=== PATIENT | female | born 1935 | race Caucasian/White ===

== ENCOUNTER 2017-11-13 18:20 | Inpatient (IN) | payer MEDICARE, OTHER ==
[~2017-11-13] VITALS: Ht 152.4 cm; Wt 65.9 kg
[~2017-11-13 18:20] MED LIST: COUMADIN 3 MG TA3 M1 PO; KEPPRA 500 MG500 M1 PO; LISINOPRIL10 MG PO; LOPRESSOR50 PO; VITAMIN D1000 UNI1 PO
[2017-11-13 18:23] VITALS: BP 100/73
[2017-11-13 18:44] LABS: URINE BILIRUBIN NEGATIVE (Negative); URINE BLOOD 1+ (Negative); URINE CLARITY CLEAR; URINE COLOR YELLOW; URINE GLUCOSE-RANDOM NEGATIVE (Negative); URINE KETONES NEGATIVE (Negative); URINE LEUKOCYTES-REFLEX 1+ (Negative); URINE NITRITE-REFLEX NEGATIVE (Negative); URINE PROTEIN NEGATIVE (Negative); URINE SPECIFIC GRAVITY 1.015 (1.005-1.030); URINE UROBILINOGEN 0.2 E.U./dl (0.2-1.0)
[2017-11-13 18:55] LABS: CASTS None Seen /LPF (None Seen); CRYSTALS None Seen /LPF (None Seen); MUCUS None Seen strn/LPF (None Seen); SQUAMOUS >10 Many /LPF (0-3)
[2017-11-13 18:56] LABS: BACTERIA-REFLEX 1-9 Few /HPF (None Seen); URINE RBC 0-2 Rare /HPF (0-2); URINE WBC-REFLEX 6-15 Few /HPF (0-5)
[2017-11-13 19:13] LABS: HEMATOCRIT 45.2 % (37.0-47.0); HEMOGLOBIN 15.3 gm/dL (12.0-15.0); MCH 31.4 pg (26.0-34.0); MCHC 33.9 g/dL (28.0-37.0); MCV 92.6 fL (80.0-100.0); MPV 7.2 fl. (7.2-11.1); NUCLEATED RBCS 0 /100WBC; PLATELET COUNT* 256 thou/uL (150-400); RBC 4.89 mil/uL (4.20-5.00); RDW-CV 12.5 % (10.5-14.5); WBC 11.3 thou/uL (4.0-11.0)
[2017-11-13 19:27] LABS: INFLUENZA A ANTIGEN None Detected (None Detect); INFLUENZA B ANTIGEN None Detected (None Detect)
[2017-11-13 19:33] LABS: CALCIUM 8.8 mg/dL (8.5-10.1); CREATININE 0.9 mg/dL (0.6-1.3); POTASSIUM 3.9 mmol/L (3.5-5.1)
[2017-11-13 19:40] LABS: ALBUMIN 3.6 g/dL (3.4-5.0); TOTAL BILIRUBIN 1.7 mg/dL (<0.1-1.0); TOTAL PROTEIN 6.8 g/dL (6.4-8.2)
[2017-11-13 19:47] LABS: ABSOLUTE LYMPHOCYTES 0.8 thou/uL (0.8-5.3); ABSOLUTE MONOCYTES 0.2 thou/uL (0.0-1.2); ABSOLUTE NEUTROPHILS 10.3 thou/uL (1.6-8.1)
[2017-11-13 19:48] LABS: PLATELET ESTIMATE ADEQUATE
[2017-11-13 20:32] LABS: INR 3.4; PROTIME 32.5 Seconds (9.20-11.50)
[2017-11-13 21:42] VITALS: BP 107/62
[2017-11-13 22:10] VITALS: BP 126/56
[2017-11-13 22:46] VITALS: BP 126/56
[2017-11-13 23:55] VITALS: BP 105/59
[2017-11-14 04:00] VITALS: BP 115/68
--- NOTE | 2017-11-14 05:08 | NUR ---
PATIENT HAS REMAINED STABLE SINCE ADMISSION. PATIENT HAS RESTED WELL THIS SHIFT WITH NO C/O PAIN OR DISCOMFORT. CLINICAL UNIT EDUCATOR IN PLACE TRACING AFIB, CHRONIC, CONTROLLED. ASSESSMENT AND VITALS COMPLETED CHARTED, VSS. IVF INFUSING PER ORDERS. HOURLY ROUNDING OBSERVED. CALL LIGHT WITHIN REACH
[2017-11-14 08:03] LABS: INR 4.4; PROTIME 41.4 Seconds (9.20-11.50)
[2017-11-14 08:12] VITALS: BP 134/73
--- NOTE | 2017-11-14 10:00 | NUR ---
PT A & O X3, ABLE TO COMMUNICATE NEEDS TO STAFF, HOWEVER, FORGETFUL AND REQUIRES REORIENTATION. AT BS VISITING, PT FREQUENTLY LOOKS TO HIM FOR ANSWERS. VS WNL. A-FIB WITH PVCS ON TELE MONITOR. 02 SATS >92% ON 2L NC. IV ROCEPHIN INFUSING. NEEDED ITEMS AND CALL LIGHT WITHIN REACH. HOURLY ROUNDING COMPLETE.
--- NOTE | 2017-11-14 11:00 | NUR ---
MET WITH PT AND SPOUSE TO DISCUSS HOME SITUATION/DC PLANNING. PT KNOWN TO CM FROM PRE[facility]OUS [facility] STAY ON [facility]PT [facility]HAB UNIT. PT LIVES WITH SPOUSE. HE ASSISTS HER NEEDED WITH ADLS. PT IS ABLE TO DO SOME COOKING. THEY SHARE OTHER HOUSEHOLD DUTIES. SPOUSE DOES DRIVING. PT HAS CANE SHE USES AND SHOWER SEAT IN A WALK IN SHOWER. PT HAS A WALKER BUT DOESN'T USE IT. SHE HAS HAD HH WITH [facility] BUT DOESN'T THINK SHE NEEDS IT THIS TIME. SHE PLANS TO RETURN HOME WITH SPOUSE AND WANTS TO GO HOME SOON. WILL FOLLOW
[2017-11-14 12:07] VITALS: BP 107/62
--- NOTE | 2017-11-14 14:48 | EKG ---
[place] [address] ELECTROCARDIOGRAM REPORT Name: SANDRA KHANNA Room: [address] ADM IN .R.#: [id number] Admission: 11/13/17 Attend Phys: Alfa Machuca MD Discharge: Date of : 33 Report #: [id number] THIS REPORT FOR: //name// [facility] ED Test Date: 2017-11-13 Test Time: 18:43:14 Pat Name: SANDRA KHANNA Department: Room: [facility] Gender: F Roll Handler: 11 : 1935 Requested By: Dulce Maria Finn Order Number: [id number] MD: Pierce Pandey Measurements Intervals [place] Rate: 93 P: [place]: QRS: 25 QRSD: 93 T: 2 QT: 360 QTc: 448 Interpretive Statements Atrial fibrillation Abnormal R-wave progression, late transition Borderline T abnormalities, inferior leads No previous ECG available for comparison Electronically Signed On 11-14-2017 14:48:08 CDT by Pierce Pandey [email or web address] <ELECTRONICALLY SIGNED> By: Pierce Pandey MD, [facility] 11/14/17 1448 [id number] [id number] Pierce Pandey MD, FAC /EPI
[2017-11-14 16:02] VITALS: BP 105/58
[2017-11-14 20:00] VITALS: BP 137/65
--- NOTE | 2017-11-14 22:00 | NUR ---
RECIEVED REPORT AND ASSUMED CARE OF PATIENT AT 1930. ASSESSMENT AND VITALS COMPLETED CHARTED, VSS. MARKETING PRODUCER TRACING AFIB, CHRONIC AND CONTROLLED. PATIENT ALERT AND ORIENTED TO PERSON AND PLACE, FORGETFUL AND CONFUSED. UPON ASSESSMENT, PATIENT HAD MARKETING PRODUCER OFF AND IV DISCONNECTED. PATIENT FRUSTRATED THAT BED AND CHAIR ALARMS WERE IN PLACE. PATIENT EDUCATED ON FALL PRECAUTIONS AND SAFETY AND ENCOURAGED THAT THESE WERE IN PLACE FOR SAFETY REASONS. PATIENT VERBALIZES UNDERSTANDING. GOAL IS TO MAINTAIN SAFETY AND REORIENTATION NEEDED WITHOUT INTERUPTION IN TREATMENT. CALL LIGHT WITHIN REACH.
[2017-11-15] VITALS: BP 126/77
[2017-11-15 03:35] VITALS: BP 127/66
--- NOTE | 2017-11-15 05:12 | NUR ---
PATIENT REMAINS CONFUSED AND IMPULSIVE THROUGHOUT SHIFT REQUIRING REORIENTATION FREQUENTLY. PATIENT FRUSTRATED AND HAS BEEN FOUND MESSING WITH IV AND THE TUBING. PATIENT REMINDED OF TREATMENT AND PLAN OF CARE. PATIENT VERBALIZES UNDERSTANDING. THIS RN WENT IN PATIENT'S ROOM THIS AM TO RESUME IVF BECAUSE PATIENT HAD TANGLED TUBING IN HER SLEEP. AT THAT TIME, PATIENT WAS TOLD THAT HER MORNING PROTONIX WOULD BE BROUGHT IN SOON. PATIENT HUFFED AND SAID "NO, LET ME SLEEP." MEDICATION MARKED REFUSED. PATIENT ANTICIPATING DISCHARGE HOME TODAY. HOURLY ROUNDING OBSERVED. CALL LIGHT WITHIN REACH
[2017-11-15 05:30] LABS: HEMATOCRIT 37.9 % (37.0-47.0); MCH 31.3 pg (26.0-34.0); MCHC 34.1 g/dL (28.0-37.0); MCV 91.9 fL (80.0-100.0); MPV 7.3 fl. (7.2-11.1); RBC 4.12 mil/uL (4.20-5.00); RDW-CV 12.6 % (10.5-14.5); WBC 8.9 thou/uL (4.0-11.0)
[2017-11-15 05:37] LABS: INR 3.8; PROTIME 36.6 Seconds (9.20-11.50)
[2017-11-15 05:45] LABS: HEMOGLOBIN 12.9 gm/dL (12.0-15.0)
[2017-11-15 05:52] LABS: ALBUMIN 2.7 g/dL (3.4-5.0); CALCIUM 8.5 mg/dL (8.5-10.1); CREATININE 0.9 mg/dL (0.6-1.3); MAGNESIUM 2.1 mg/dL (1.8-2.4); POTASSIUM 4.8 mmol/L (3.5-5.1); TOTAL BILIRUBIN 0.7 mg/dL (<0.1-1.0); TOTAL PROTEIN 5.5 g/dL (6.4-8.2)
[2017-11-15 08:00] VITALS: BP 130/59
--- NOTE | 2017-11-15 09:57 | NUR ---
ASSUMED CARE OF PATIENT THIS AM AT 0730. PATIENT IS ALERT AND ORIENTED X 3 THIS AM. SHE DENIES PAIN. SHE HAS BEEN ASSISTED UP TO THE CHAIR THIS AM. PATIENT IS TAKING HER MEALS WELL. NO C/O PAIN.NAUSEA OR DISCOMFORT. TELE SHOWS A FIB. PATIENT IS USING HER CALL LIGHT APPROPRIATELY. NO FALLS OR INJURY. PATIENT CONTINUES TO REFUSE FLU VACCINE UNTIL SHE TALKS TO HER . IV FLUIDS INFUSING WITOUT DIFFICULTY. WILL CONTINUE TO MONITOR. CHAIR ALARM AND BED ALARM IS ON.
[2017-11-15] MEDS ORDERED: BACTRIM DS TAB1 EACH PO (13:51)
== END 2017-11-15 16:20 | disposition home or self-care (01) | DRG 689 ==
LOC: M.ERS 18:20 → M.TBA-ER 20:22 → M.2W 20:22
PROVIDERS: Internal Medicine; Nurse Practitioner Family; ADMIT Internal Medicine
DX: N30.01 Acute cystitis with hematuria (principal); G92 Toxic encephalopathy; R65.10 Systemic inflammatory response syndrome (SIRS) of non-infectious origin without acute organ dysfunction; I69.351 Hemiplegia and hemiparesis following cerebral infarction affecting right dominant side; J96.10 Chronic respiratory failure, unspecified whether with hypoxia or hypercapnia; E44.1 Mild protein-calorie malnutrition; F03.90 Unspecified dementia, unspecified severity, without behavioral disturbance, psychotic disturbance, mood disturbance, and anxiety; R56.9 Unspecified convulsions; I48.91 Unspecified atrial fibrillation; Z90.49 Acquired absence of other specified parts of digestive tract; Z90.710 Acquired absence of both cervix and uterus; Z95.0 Presence of cardiac pacemaker; Z79.01 Long term (current) use of anticoagulants; Z83.3 Family history of diabetes mellitus; Z80.9 Family history of malignant neoplasm, unspecified; Z83.6 Family history of other diseases of the respiratory system; Z79.899 Other long term (current) drug therapy; Z28.82 Immunization not carried out because of caregiver refusal; Z98.49 Cataract extraction status, unspecified eye

== ENCOUNTER 2018-04-24 09:33 | Emergency (ER) | payer MEDICARE, OTHER ==
[~2018-04-24] VITALS: Ht 160 cm; Wt 65.8 kg
[~2018-04-24 09:33] MED LIST changes: +BACTRIM DS TAB1 EACH PO
[2018-04-24 10:16] LABS: ABSOLUTE EOSINOPHILS 0.1 thou/uL (0.0-0.7); ABSOLUTE LYMPHOCYTES 1.5 thou/uL (0.8-5.3); ABSOLUTE MONOCYTES 0.4 thou/uL (0.0-1.2); ABSOLUTE NEUTROPHILS 1.8 thou/uL (1.6-8.1); BASOPHILS 1.1 %; EOSINOPHILS 1.9 %; HEMATOCRIT 44.7 % (37.0-47.0); LYMPHOCYTES 39.7 %; MCHC 33.6 g/dL (28.0-37.0); MCV 92.2 fL (80.0-100.0); MONOCYTES 11.5 %; MPV 6.9 fl. (7.2-11.1); NUCLEATED RBCS 0 /100WBC; PLATELET COUNT* 179 thou/uL (150-400); POLYS 45.8 %; RBC 4.85 mil/uL (4.20-5.00); RDW-CV 13.1 % (10.5-14.5); WBC 3.9 thou/uL (4.0-11.0)
[2018-04-24 10:24] LABS: CALCIUM 8.6 mg/dL (8.5-10.1); CREATININE 0.8 mg/dL (0.6-1.3); POTASSIUM 3.9 mmol/L (3.5-5.1)
[2018-04-24 10:28] LABS: ALBUMIN 3.4 g/dL (3.4-5.0); TOTAL BILIRUBIN 2.1 mg/dL (<0.1-1.0); TOTAL PROTEIN 6.8 g/dL (6.4-8.2)
[2018-04-24 10:37] LABS: URINE BILIRUBIN NEGATIVE (Negative); URINE BLOOD TRACE (Negative); URINE CLARITY CLEAR; URINE COLOR YELLOW; URINE GLUCOSE-RANDOM NEGATIVE (Negative); URINE KETONES NEGATIVE (Negative); URINE LEUKOCYTES-REFLEX TRACE (Negative); URINE NITRITE-REFLEX NEGATIVE (Negative); URINE PROTEIN NEGATIVE (Negative); URINE SPECIFIC GRAVITY <= 1.005 (1.005-1.030); URINE UROBILINOGEN 0.2 E.U./dl (0.2-1.0)
[2018-04-24 10:46] LABS: BACTERIA-REFLEX 1-9 Few /HPF (None Seen); CASTS None Seen /LPF (None Seen); CRYSTALS None Seen /LPF (None Seen); MUCUS None Seen strn/LPF (None Seen); SQUAMOUS 0-3 Few /LPF (0-3); URINE RBC 0-2 Rare /HPF (0-2); URINE WBC-REFLEX 0-5 Rare /HPF (0-5)
[2018-04-24] MEDS ORDERED: KEFLEX500 M1 PO (11:13)
[2018-04-24 12:36] VITALS: BP 143/74
== END 2018-04-24 12:36 | disposition home or self-care (01) ==
LOC: M.ERS 09:33
PROVIDERS: Personal Emergency Response Attendant
DX: N39.0 Urinary tract infection, site not specified (principal); I48.91 Unspecified atrial fibrillation; Z86.73 Personal history of transient ischemic attack (TIA), and cerebral infarction without residual deficits

== ENCOUNTER 2018-04-30 04:56 | Emergency (ER) | payer MEDICARE, OTHER ==
[~2018-04-30] VITALS: Ht 152.4 cm; Wt 61.2 kg
[~2018-04-30 04:56] MED LIST changes: +KEFLEX500 M1 PO
[2018-04-30 05:23] LABS: INR 2.2; PROTIME 22.3 Seconds (9.20-11.50)
[2018-04-30 05:56] LABS: URINE BILIRUBIN NEGATIVE (Negative); URINE BLOOD 2+ (Negative); URINE CLARITY CLEAR; URINE COLOR YELLOW; URINE GLUCOSE-RANDOM NEGATIVE (Negative); URINE KETONES NEGATIVE (Negative); URINE LEUKOCYTES-REFLEX TRACE (Negative); URINE NITRITE-REFLEX NEGATIVE (Negative); URINE PROTEIN NEGATIVE (Negative); URINE SPECIFIC GRAVITY 1.015 (1.005-1.030); URINE UROBILINOGEN 0.2 E.U./dl (0.2-1.0)
[2018-04-30 06:03] LABS: BACTERIA-REFLEX >30 Many /HPF (None Seen); CASTS None Seen /LPF (None Seen); CRYSTALS None Seen /LPF (None Seen); MUCUS 4-6 Moderate strn/LPF (None Seen); SQUAMOUS 0-3 Few /LPF (0-3); TRANSITIONAL EPITHEL CELL 0-3 Few /LPF (None Seen); URINE RBC >20 Many /HPF (0-2); URINE WBC-REFLEX 6-15 Few /HPF (0-5); WBC CLUMPS Few (None Seen)
[2018-04-30 06:32] VITALS: BP 145/97
== END 2018-04-30 06:34 | disposition home or self-care (01) ==
LOC: M.ERS 04:56
PROVIDERS: Emergency Medicine
DX: S00.83XA Contusion of other part of head, initial encounter (principal); I48.91 Unspecified atrial fibrillation; Z87.440 Personal history of urinary (tract) infections; W01.0XXA Fall on same level from slipping, tripping and stumbling without subsequent striking against object, initial encounter; Y93.89 Activity, other specified; Y92.89 Other specified places as the place of occurrence of the external cause; Y99.8 Other external cause status

== ENCOUNTER 2018-08-27 10:54 | Inpatient (IN) | payer MEDICARE, OTHER ==
[~2018-08-27] VITALS: Ht 162.6 cm; Wt 70.8 kg
[2018-08-27 10:58] VITALS: BP 185/90
[2018-08-27 11:15] LABS: URINE BILIRUBIN NEGATIVE (Negative); URINE BLOOD TRACE (Negative); URINE CLARITY CLEAR; URINE COLOR YELLOW; URINE GLUCOSE-RANDOM NEGATIVE (Negative); URINE KETONES NEGATIVE (Negative); URINE LEUKOCYTES-REFLEX TRACE (Negative); URINE NITRITE-REFLEX NEGATIVE (Negative); URINE PROTEIN NEGATIVE (Negative); URINE SPECIFIC GRAVITY 1.015 (1.005-1.030); URINE UROBILINOGEN 0.2 E.U./dl (0.2-1.0)
[2018-08-27 11:23] LABS: ABSOLUTE BASOPHILS 0.1 thou/uL (0.0-0.2); ABSOLUTE EOSINOPHILS 0.1 thou/uL (0.0-0.7); ABSOLUTE LYMPHOCYTES 1.6 thou/uL (0.8-5.3); ABSOLUTE MONOCYTES 0.5 thou/uL (0.0-1.2); ABSOLUTE NEUTROPHILS 2.6 thou/uL (1.6-8.1); BASOPHILS 1.4 %; EOSINOPHILS 2.8 %; HEMATOCRIT 48.8 % (37.0-47.0); HEMOGLOBIN 16.4 gm/dL (12.0-15.0); LYMPHOCYTES 33.3 %; MCH 31.6 pg (26.0-34.0); MCHC 33.7 g/dL (28.0-37.0); MCV 93.6 fL (80.0-100.0); MONOCYTES 10.2 %; MPV 6.9 fl. (7.2-11.1); NUCLEATED RBCS 0 /100WBC; PLATELET COUNT* 204 thou/uL (150-400); POLYS 52.3 %; RBC 5.21 mil/uL (4.20-5.00); RDW-CV 12.9 % (10.5-14.5); WBC 4.9 thou/uL (4.0-11.0)
[2018-08-27 11:27] LABS: SQUAMOUS 0-3 Few /LPF (0-3)
[2018-08-27 11:28] LABS: BACTERIA-REFLEX 1-9 Few /HPF (None Seen); CASTS None Seen /LPF (None Seen); CRYSTALS None Seen /LPF (None Seen); MUCUS 0-3 Light strn/LPF (None Seen); URINE RBC 0-2 Rare /HPF (0-2); URINE WBC-REFLEX 0-5 Rare /HPF (0-5)
[2018-08-27 11:31] LABS: ANION GAP 7 mmol/L (7-16); BUN 13 mg/dL (7-18); CALCIUM 9.1 mg/dL (8.5-10.1); CHLORIDE 99 mmol/L (98-107); CO2 32 mmol/L (21-32); GLUCOSE 111 mg/dL (70-99); POTASSIUM 3.8 mmol/L (3.5-5.1); SODIUM 138 mmol/L (136-145)
[2018-08-27 11:35] LABS: APTT 36.6 Seconds (25.0-31.3); INR 1.9; PROTIME 19.4 Seconds (9.20-11.50)
[2018-08-27 11:47] LABS: ALBUMIN 3.9 g/dL (3.4-5.0); ALKALINE PHOSPHATASE 67 U/L (46-116); NT-PRO BRAIN NAT PEPTIDE 1502 pg/mL (<300); SGOT 21 U/L (15-37); SGPT 21 U/L (30-65); TROPONIN-I LEVEL <0.06 ng/mL (<0.06)
[2018-08-27 15:20] VITALS: BP 133/63
[2018-08-27 16:52] VITALS: BP 138/101
--- NOTE | 2018-08-27 19:14 | NUR ---
PATIENT ARRIVED FROM ER THIS EVENING. PATIENT SETTLED TO ROOM. HISTORY, ASSESSMENT AND VITALS COMPLETED AND DOCUMENTED. PATIENT DENIES ANY PAIN. PATIENT IS UP STANDBY TO BATHROOM. AT BEDSIDE. PATIENT DENIES ANY NEEDS AT THIS TIME. CALL LIGHT WITHIN REACH. WILL COTNINUE TO MONITOR.
[2018-08-27 21:27] VITALS: BP 150/85
[2018-08-28 04:55] LABS: INR 1.8; PROTIME 18.1 Seconds (9.20-11.50)
[2018-08-28 04:59] LABS: CALCIUM 8.6 mg/dL (8.5-10.1); CREATININE 0.9 mg/dL (0.6-1.3); POTASSIUM 3.9 mmol/L (3.5-5.1)
[2018-08-28 05:00] LABS: HEMATOCRIT 41.6 % (37.0-47.0); MCH 32.1 pg (26.0-34.0); MCHC 34.4 g/dL (28.0-37.0); MCV 93.1 fL (80.0-100.0); MPV 7.3 fl. (7.2-11.1); RBC 4.46 mil/uL (4.20-5.00); RDW-CV 12.7 % (10.5-14.5)
[2018-08-28 05:06] LABS: HEMOGLOBIN 14.3 gm/dL (12.0-15.0)
[2018-08-28 08:40] VITALS: BP 149/71
--- NOTE | 2018-08-28 15:47 | NUR ---
SW met with pt to complete initial assessment, introduce self, and SW role. Pt known to SW due to pt previous stay on inpt rehab unit. Pt alert, oriented. Pt lives at home with her and she has supportive dtrs. Pt has a cane, RW, shower seat. Pt has hx of HH services with [facility]. SW to continue to follow to assist with safe dc planning.
[2018-08-28 16:00] VITALS: BP 152/86
--- NOTE | 2018-08-28 16:24 | EKG ---
[place] [address] ELECTROCARDIOGRAM REPORT Name: SANDRA KHANNA Room: [address] ADM IN .R.#: [id number] Admission: 08/27/18 Attend Phys: Bonnie Malave MD Discharge: Date of : 33 Report #: [id number] THIS REPORT FOR: //name// [facility] ED Test Date: 2018-08-27 Test Time: 11:14:14 Pat Name: SANDRA KHANNA Department: Room: [facility] Gender: F Clinical Quality Assurance Associate: MS : 1935 Requested By: Jarrod Yoo Order Number: [id number] MD: Pierce Pandey Measurements Intervals [place] Rate: 77 P: [place]: QRS: -12 QRSD: 103 T: -14 QT: 405 QTc: 459 Interpretive Statements Afib/flut and V-paced complexes No further rhythm analysis attempted due to paced rhythm Anteroseptal infarct, age indeterminate possible Baseline wander in lead(s) V1,V2 Compared to ECG 11/13/2017 18:43:14 Myocardial infarct finding now present T-wave abnormality no longer present Electronically Signed On 08-28-2018 16:24:07 OFFICE TECHNICIAN by Pierce Pandey [email or web address] <ELECTRONICALLY SIGNED> By: Pierce Pandey MD, [facility] 08/28/18 1624 1114 1114 Pierce Pandey MD, [facility] /EPI
--- NOTE | 2018-08-28 19:21 | NUR ---
PATIENT HAS BEEN A/O, FORGETFUL AT TIMES THROUGHOUT THE SHIFT, REORIENTS EASILY. PATIENT DENIES PAIN. IV FLUIDS AND ANTIBIOTICS INFUSING ORDERED. UP WITH SBA WITH CANE TO BATHROOM. APPETITE GOOD. UP IN CHAIR FOR MOST OF SHIFT. AFEBRILE, VITALS STABLE. AT BEDSIDE. HOURLY ROUNDING COMPLETED. CALL LIGHT WITHIN REACH. WILL CONTINUE WITH PLAN OF CARE.
[2018-08-28 20:15] VITALS: BP 138/77
--- NOTE | 2018-08-29 05:56 | NUR ---
PT SLEPT ON AND OFF THIS SHIFT, URINATING FREQUENTLY. ASSESSMENT DOCUMENTED. MEDS GIVEN PER E-MAR. IV PATENT, FLUIDS INFUSING. NO REPORTS OF PAIN. FALL PRECAUTIONS IN PLACE. WILL CONTINUE WITH PLAN OF CARE.
[2018-08-29 07:55] VITALS: BP 166/100
[2018-08-29] MEDS ORDERED: BACTRIM DS TAB1 EACH PO (12:03)
[2018-08-29 14:29] VITALS: BP 166/100
--- NOTE | 2018-08-29 15:59 | NUR ---
PATIENT A&OX4, FORGETFULL AND CONFUSED AT TIMES. ROOM AIR, IV LEFT AC SALINE LOCK. IV DISCONTINED, CATHETER FULLY INTACT. UP STAND BY, STEADY GIAT. RIGHT SIDED WEAKNESS NOTED. BM TODAY. NO SKIN ISSUES. REVIEWED DISCHARGE PAPERWORK WITH PATIENT WHILE SPOUSE AT BEDSIDE. ALL QUESTIONS AND CONCERNS ANSWERED. PATIENT LEFT UNIT AT 1550 VIA W/C WITH ALL BELONGINGS. NO OTHER CONCERNS AT THIS TIME. APPROPRAITE AND COOPORATIVE WITH CARE.
== END 2018-08-29 15:50 | disposition home or self-care (01) | DRG 871 ==
LOC: M.ERS 10:54 → M.TBA-ER 12:18 → M.3W 12:18
PROVIDERS: Emergency Medicine Emergency Medical Services; ADMIT Internal Medicine
DX: A41.9 Sepsis, unspecified organism (principal); G92 Toxic encephalopathy; N39.0 Urinary tract infection, site not specified; I69.351 Hemiplegia and hemiparesis following cerebral infarction affecting right dominant side; R31.9 Hematuria, unspecified; I48.91 Unspecified atrial fibrillation; Z95.0 Presence of cardiac pacemaker; Z87.440 Personal history of urinary (tract) infections; Z79.899 Other long term (current) drug therapy; Z83.3 Family history of diabetes mellitus; Z83.6 Family history of other diseases of the respiratory system; Z80.9 Family history of malignant neoplasm, unspecified; Z90.710 Acquired absence of both cervix and uterus; Z90.49 Acquired absence of other specified parts of digestive tract; Z98.49 Cataract extraction status, unspecified eye

== ENCOUNTER 2018-08-30 10:13 | Emergency (ER) | payer MEDICARE, OTHER ==
[~2018-08-30] VITALS: Ht 160 cm; Wt 67.4 kg
[2018-08-30 11:27] LABS: ABSOLUTE EOSINOPHILS 0.1 thou/uL (0.0-0.7); ABSOLUTE LYMPHOCYTES 1.2 thou/uL (0.8-5.3); ABSOLUTE MONOCYTES 0.4 thou/uL (0.0-1.2); ABSOLUTE NEUTROPHILS 2.8 thou/uL (1.6-8.1); BASOPHILS 0.8 %; EOSINOPHILS 1.7 %; HEMATOCRIT 44.6 % (37.0-47.0); HEMOGLOBIN 14.9 gm/dL (12.0-15.0); LYMPHOCYTES 26.7 %; MCH 31.2 pg (26.0-34.0); MCHC 33.5 g/dL (28.0-37.0); MCV 93.3 fL (80.0-100.0); MONOCYTES 9.7 %; MPV 7.4 fl. (7.2-11.1); NUCLEATED RBCS 0 /100WBC; PLATELET COUNT* 191 thou/uL (150-400); POLYS 61.1 %; RBC 4.78 mil/uL (4.20-5.00); RDW-CV 12.7 % (10.5-14.5); WBC 4.6 thou/uL (4.0-11.0)
[2018-08-30 11:30] LABS: POTASSIUM 3.4 mmol/L (3.5-5.1)
[2018-08-30 11:34] LABS: ALBUMIN 3.2 g/dL (3.4-5.0); MAGNESIUM 1.9 mg/dL (1.8-2.4); TOTAL BILIRUBIN 1.6 mg/dL (<0.1-1.0); TOTAL PROTEIN 6.7 g/dL (6.4-8.2)
[2018-08-30 11:54] LABS: BE -2.2 mmol/L (-2 to +3); HCO3 24.4 mmol/L (22.0-26.0); PCO2 48.4 mmHg (35.0-45.0); PO2 73.7 mmHg (75.0-100.0); pH 7.321 (7.340-7.450)
[2018-08-30 13:37] LABS: INR 1.5; PROTIME 14.9 Seconds (9.20-11.50)
[2018-08-30 13:59] LABS: URINE BILIRUBIN NEGATIVE (Negative); URINE BLOOD 1+ (Negative); URINE CLARITY CLEAR; URINE COLOR YELLOW; URINE GLUCOSE-RANDOM NEGATIVE (Negative); URINE KETONES NEGATIVE (Negative); URINE LEUKOCYTES-REFLEX NEGATIVE (Negative); URINE NITRITE-REFLEX NEGATIVE (Negative); URINE PROTEIN NEGATIVE (Negative); URINE SPECIFIC GRAVITY 1.025 (1.005-1.030); URINE UROBILINOGEN 0.2 E.U./dl (0.2-1.0)
[2018-08-30 14:12] LABS: SQUAMOUS 4-10 Moderate /LPF (0-3)
[2018-08-30 14:13] LABS: URINE RBC 0-2 Rare /HPF (0-2); URINE WBC-REFLEX 0-5 Rare /HPF (0-5)
[2018-08-30 14:14] LABS: BACTERIA-REFLEX None Seen /HPF (None Seen); CASTS None Seen /LPF (None Seen); CRYSTALS None Seen /LPF (None Seen); MUCUS 0-3 Light strn/LPF (None Seen)
[2018-08-30 14:26] VITALS: BP 133/74
== END 2018-08-30 14:27 | disposition home or self-care (01) ==
LOC: M.ERS 10:13
PROVIDERS: Personal Emergency Response Attendant
DX: R56.9 Unspecified convulsions (principal); R41.82 Altered mental status, unspecified; I48.91 Unspecified atrial fibrillation; F03.90 Unspecified dementia, unspecified severity, without behavioral disturbance, psychotic disturbance, mood disturbance, and anxiety; Z87.440 Personal history of urinary (tract) infections; Z90.49 Acquired absence of other specified parts of digestive tract; Z86.73 Personal history of transient ischemic attack (TIA), and cerebral infarction without residual deficits